=== PATIENT | male | born 1950 | race Caucasian/White ===

== ENCOUNTER → 2017-10-10 | Outpatient (CLI) | payer OTHER | END | disposition home or self-care (01) | LOC: OIH 10-07 13:22 | PROVIDERS: ATTEND Internal Medicine Cardiovascular Disease | DX: Z12.31 Encounter for screening mammogram for malignant neoplasm of breast (principal) | CPT/HCPCS: 75571 ==

== ENCOUNTER → 2018-02-13 | Outpatient (CLI) | payer OTHER ==
[~2018-02-13] MED LIST: CHOL500051 PO; DRON400T2 PO; FINA5TAB41 PO; MELA1TAB17 PO; METO-408 PO; PRAV20TA4 PO; RIVA20TA PO; SACU1TAB PO; TESTOSTERONE IM; [UNRECOGNIZED DRUG - CODE] PO
== END | disposition home or self-care (01) ==
LOC: SHCH 09:56
PROVIDERS: ATTEND Internal Medicine Cardiovascular Disease
DX: I08.1 Rheumatic disorders of both mitral and tricuspid valves (principal)
CPT/HCPCS: 93306

== ENCOUNTER 2018-03-12 07:47 | Observation (INO) | payer OTHER ==
[2018-03-10 08:35] VITALS: BP 126/71
[2018-03-10 08:38] LABS: BASOPHILS % (AUTO) 0.9 % (0.0-5.0); EOSINOPHILS % (AUTO) 1.1 % (0.0-8.0); HEMATOCRIT 48.6 % (42-54); LYMPHOCYTES % (AUTO) 27.8 % (21.0-51.0); MEAN CORPUSCULAR HEMOGLOBIN 38.1 pg (27.0-33.0); MEAN CORPUSCULAR HGB CONC 34.8 g/dL (32.0-36.0); MEAN CORPUSCULAR VOLUME 109.6 fL (79-99); MONOCYTES % (AUTO) 9.9 % (3.0-13.0); NEUTROPHILS % (AUTO) 60.3 % (40.0-77.0); PLATELET COUNT (AUTO) 272 K/uL (130-400); RED BLOOD CELL COUNT(AUTO) 4.43 MIL/uL (4.50-6.20); RED CELL DISTRIBUTION WIDTH 12.9 % (11.0-15.5); WHITE BLOOD COUNT (AUTO) 7.4 K/uL (4.8-10.8)
[2018-03-10 09:15] LABS: INR 1.14 (0.85-1.15); PARTIAL THROMBOPLASTIN TIME 30.6 SEC (26.3-35.5); PROTHROMBIN TIME 11.9 SEC (9.6-11.6)
[~2018-03-12] VITALS: Ht 175.3 cm; Wt 78.7 kg
[2018-03-12] VITALS (11 sets, daily range): BP systolic 99–136; BP diastolic 65–91
[2018-03-12] MEDS: CEFAZOLIN SODIUM 1 GM VIAL IVP SCH ×2 (05:00→19:30)
[~2018-03-12 07:47] MED LIST changes: +CALC-134 PO; +DIGO125T87 PO; -DRON400T2 PO; -TESTOSTERONE IM; -[UNRECOGNIZED DRUG - CODE] PO
[2018-03-12] MEDS ORDERED: IODIXANOL 320 MG/ML 100 ML VIAL ONE (10:39)
[2018-03-12] MEDS ORDERED: BUPIVACAINE/PF 0.25% 50ML VIAL IJ ONE (10:39)
[2018-03-12] MEDS ORDERED: LIDOCAINE HCL 1% MDV 50ML VIAL ONE (10:40)
[2018-03-12] MEDS ORDERED: CEFAZOLIN SODIUM 1 GM VIAL ONE (10:40)
[2018-03-12] MEDS ORDERED: MEPERIDINE-PF 25 MG/ML SYG ONE ×4 (10:46→12:00)
[2018-03-12] MEDS ORDERED: MIDAZOLAM HCL 1 MG/ML 2ML VIAL ONE ×3 (10:46→11:38)
[2018-03-12] MEDS ORDERED: SODIUM CHLORIDE 0.9% 1000ML 1,000 ML IV ONE (10:46)
[2018-03-12] MEDS ORDERED: IOHEXOL-350 50ML VIAL IV ONE (11:49)
[2018-03-12] MEDS ORDERED: METOPROLOL TARTRATE 1 MG/ML 5ML VIAL IV ONE (12:05)
[2018-03-12] MEDS ORDERED: ONDANSETRON HCL 4 MG/2 ML VIAL IV PRN (12:45)
[2018-03-12] MEDS ORDERED: ACETAMINOPHEN 325 MG TAB PO PRN (12:45)
[2018-03-12] MEDS ORDERED: ACETAMINOPHEN-CODEINE 300/30MG TAB PO PRN ×2 (12:45)
[2018-03-12] MEDS ORDERED: METOPROLOL TARTRATE 25 MG TAB PO ONE (14:00)
[2018-03-12] MEDS ORDERED: ALBUTEROL SULFATE 0.083% 2.5 MG/3 ML INH IH PRN (14:45)
[2018-03-12] MEDS: METOPROLOL TARTRATE 50 MG TAB PO SCH (20:28)
[2018-03-12] MEDS: CALCIUM 600 + VITAMIN D 400 TABLET PO SCH (20:29)
[2018-03-12] MEDS ORDERED: SIMVASTATIN 10 MG TABLET PO SCH (21:00)
[2018-03-12] MEDS ORDERED: FINASTERIDE 5 MG TABLET PO SCH (21:00)
[2018-03-12] MEDS ORDERED: DIGOXIN 125 MCG TABLET PO SCH (21:00)
[2018-03-13 03:00] VITALS: BP 129/95
[2018-03-13 03:44] LABS: HEMATOCRIT 47.2 % (42-54); MEAN CORPUSCULAR HEMOGLOBIN 36.2 pg (27.0-33.0); MEAN CORPUSCULAR HGB CONC 33.2 g/dL (32.0-36.0); MEAN CORPUSCULAR VOLUME 109.2 fL (79-99); PLATELET COUNT (AUTO) 217 K/uL (130-400); RED BLOOD CELL COUNT(AUTO) 4.32 MIL/uL (4.50-6.20); RED CELL DISTRIBUTION WIDTH 12.8 % (11.0-15.5); WHITE BLOOD COUNT (AUTO) 9.2 K/uL (4.8-10.8)
[2018-03-13 04:03] LABS: ALBUMIN 3.6 g/dL (3.5-5.0); BILIRUBIN,TOTAL 1.6 mg/dL (0.2-1.0); CREATININE 0.9 mg/dL (0.5-1.5); DIGOXIN 0.33 ng/mL (0.50-2.00); POTASSIUM 3.7 mmol/L (3.5-5.1); THYROID STIMULATING HORMONE 3.46 uIU/mL (0.36-3.74); TOTAL PROTEIN, SERUM 6.5 g/dL (6.0-8.3)
[2018-03-13 07:27] VITALS: BP 127/75
[2018-03-13] MEDS: METOPROLOL TARTRATE 50 MG TAB PO SCH (09:15)
[2018-03-13] MEDS: CALCIUM 600 + VITAMIN D 400 TABLET PO SCH (09:15)
[2018-03-13] MEDS ORDERED: METO-391 PO (11:05)
[2018-03-13 11:14] VITALS: BP 114/87
[2018-03-13] MEDS ORDERED: CHOLECALCIFEROL 5000 UNIT PO SCH (21:00)
== END 2018-03-13 13:15 | disposition home or self-care (01) ==
LOC: DAH 07:47 → 2AH 07:48 → DAH 07:48
PROVIDERS: ADMIT Internal Medicine; ATTEND Internal Medicine Cardiovascular Disease
DX: I48.2 Chronic atrial fibrillation (principal); I42.0 Dilated cardiomyopathy; F12.90 Cannabis use, unspecified, uncomplicated; F17.290 Nicotine dependence, other tobacco product, uncomplicated; Z80.0 Family history of malignant neoplasm of digestive organs; Z81.8 Family history of other mental and behavioral disorders; Z86.19 Personal history of other infectious and parasitic diseases; Z79.01 Long term (current) use of anticoagulants
CPT/HCPCS: 33207; 36415 ×2; 71045; 80048; 80053; 80162; 84443; 85025; 85027; 85610; 85730; 93005; 94664; A4606; C1786; C1894; C1898; G0378 ×29; J0690; J2175 ×4; J2250 ×3; J3490 ×3; J7030; Q9967; 99156; 99157

== ENCOUNTER → 2018-04-16 | Outpatient (CLI) | payer OTHER ==
[~2018-04-16] MED LIST changes: +METO-391 PO; -METO-408 PO
== END | disposition home or self-care (01) ==
LOC: SHCH 08:34
PROVIDERS: ATTEND Internal Medicine Cardiovascular Disease
DX: I73.9 Peripheral vascular disease, unspecified (principal); Z72.89 Other problems related to lifestyle
CPT/HCPCS: 93930

== ENCOUNTER → 2020-12-05 | Outpatient (CLI) | payer MEDICARE ==
[~2020-12-05] MED LIST changes: +DIGO125T71 PO; -DIGO125T87 PO
== END | disposition home or self-care (01) ==
LOC: SHCH 03:30
PROVIDERS: ATTEND Internal Medicine Cardiovascular Disease
DX: I65.23 Occlusion and stenosis of bilateral carotid arteries (principal); I25.10 Atherosclerotic heart disease of native coronary artery without angina pectoris; R00.0 Tachycardia, unspecified; I42.9 Cardiomyopathy, unspecified; Z95.1 Presence of aortocoronary bypass graft
CPT/HCPCS: 93880

== ENCOUNTER 2025-05-20 05:39 | Day surgery (SDC) | payer MEDICARE ==
[2025-05-18 10:28] LABS: IMMATURE GRANULOCYTE ABSOLUTE 0.03 K/uL (0-1); NUCLEATED RED BLOOD CELLS 0.0 % (0.0-0.19); PLATELET COUNT (AUTO) 202 K/uL (130-400); RED BLOOD CELL COUNT(AUTO) 3.90 MIL/uL (4.50-6.20); RED CELL DISTRIBUTION WIDTH 14.7 % (11.0-15.5); WHITE BLOOD COUNT (AUTO) 6.6 K/uL (4.8-10.8)
[2025-05-18 10:30] VITALS: BP 135/81; PULSE 98; RESP 17; TEMP 97.5
[2025-05-18 10:31] LABS: APPEARANCE,URINE CLEAR (CLEAR); GLUCOSE, URINE (UA) NEGATIVE (NEGATIVE); LEUKOCYTE ESTERASE ,URINE NEGATIVE Leu/uL (NEGATIVE); NITRATE,URINE NEGATIVE (NEGATIVE); OCCULT BLOOD,URINE +- (TRACE) (NEGATIVE)
[2025-05-18 10:32] LABS: ADD UA MICROSCOPIC YES
[2025-05-18 10:38] LABS: CREATININE 0.8 mg/dL (0.5-1.3); GLOMERULAR FILTR. RATE CALC 92.0 mL/min (>90); GLUCOSE,RANDOM 92.0 mg/dL (70-105); SODIUM SERUM 135.0 mmol/L (136-145); UREA NITROGEN, BLOOD 21.0 mg/dL (7-18)
[2025-05-18 10:39] LABS: INR 1.08 (0.85-1.15)
--- NOTE | 2025-05-18 12:01 | HMCIMG ---
STUDY CR CHEST, 1 VIEW HISTORY Preoperative evaluation. TECHNIQUE Single frontal radiograph of the chest was obtained. COMPARISON None. FINDINGS LUNGS Findings compatible with chronic obstructive pulmonary disease are present, with hyperinflation and increased interstitial markings consistent with chronic bronchitic changes. No focal pulmonary mass, new consolidation, or acute airspace abnormality is identified. PLEURAL SPACES No pleural effusion or pneumothorax is demonstrated. MEDIASTINUM AND JESSICA The cardiac silhouette is mildly enlarged, compatible with mild cardiomegaly. Mediastinal and hilar contours are otherwise within normal limits. DEVICES An external cardiac pacemaker overlies the left anterior chest wall with leads projecting in expected positions, without radiographic evidence of hardware-related complication. BONES AND SOFT TISSUES No aggressive osseous lesion or acute osseous abnormality is identified. IMPRESSION * Mild cardiomegaly with imaging features of COPD and chronic bronchitic changes; no superimposed acute pulmonary process. * Left anterior chest wall cardiac pacemaker without radiographic evidence of hardware complication. /Gully
--- NOTE | 2025-05-18 14:35 | EKG ---
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
[~2025-05-20] VITALS: Ht 175.3 cm; Wt 75.0 kg
[2025-05-20] VITALS (10 sets, daily range): BP systolic 101–133; BP diastolic 69–89; PULSE 62–91; RESP 11–21; TEMP 96.8–97.4
[~2025-05-20 05:39] MED LIST changes: -CALC-134 PO; +CALC-854 PO; +CHOL100046 PO; -CHOL500051 PO; +DIVA-134 PO; +LION'S MANE PO; +LOSA25TA41 PO; -MELA1TAB17 PO; +MELA5TAB SL; +METO-409 PO; -PRAV20TA4 PO; +PRAV20TA59 PO; -SACU1TAB PO; +VIT1CAPS47 PO; +[UNRECOGNIZED DRUG - OTHER] PO
[2025-05-20] MEDS: 0.9%NACL 1000ML 1,000 ML IV SCH (06:43)
[2025-05-20] MEDS ORDERED: IOHEXOL 350 MG/ML 100ML INFUS..BTL IV ONE (07:07)
[2025-05-20] MEDS ORDERED: HEParin-NS 1,000 UNIT/500 ML 1,000 ML IV ONE (07:08)
[2025-05-20] MEDS ORDERED: NITROGLYCERIN 50MG VIAL ONE (07:08)
[2025-05-20] MEDS ORDERED: LIDOCAINE HCL 400MG/20ML VIAL ONE (07:09)
[2025-05-20] MEDS ORDERED: MIDAZOLAM HCL 1 MG/ML 2ML VIAL ONE (07:24)
[2025-05-20] MEDS ORDERED: IOHEXOL-350 50ML VIAL IV ONE (07:42)
--- NOTE | 2025-05-20 08:08 | PRN ---
Cath Procedure Report CATH PROCEDURE REPORT CARDIAC CATHETERIZATION REPORT Date of Service: May 20, 2025 After informed consent the patient was prepped and draped in the usual fashion. He received a total of 16 cc of 2% xylocaine in the right inguinal area. A six Vietnamese sheath was introduced into the right femoral artery using modified Seldinger technique. A [place] four right six Vietnamese diagnostic catheter was advanced over guidewire to the aortic root. Wire was removed and catheter engaged into the three affiliated right coronary artery. The right coronary artery was visualized in multiple planes and catheter was removed. A [place] four left six Vietnamese diagnostic catheter was then advanced over guidewire to the aortic root. Wire was removed and catheter engaged into the left main coronary artery. The l eft coronary system was visualized multiple planes and catheter was removed. A pigtail catheter was then advanced over guidewire across the aortic valve. Wire was removed and hemodynamics measured. A ventriculogram in the BEGUM projection was performed. A pullback with continuous hemodynamic monitoring was performed and catheter was removed. A sheathogram was performed. The six Vietnamese Angio- Seal closure device applied. The entire procedure was well tolerated without complications. Findings: The right coronary artery is a right-dominant vessel free of obstruction gives rise to normal PDA and posterolateral branches. The left main coronary artery is free of obstruction. The left anterior descending artery extends to the apex of the heart and is free of obstruction gives rise to normal diagonal branch. The circumflex artery is free of obstruction gives gives rise to normal obtuse marginal branches. LV ejection fraction has improved to 45- 50%. Previously 35-40%. There was 2+ mitral regurgitation and no aortic stenosis. Lines and continue with treatment for his atrial fibrillation and consider EP referral for evaluation of syncope and nonsustained ventricular tachycardia. Report dictated by Ta MONIQUE,TA Wagoner MD May 20, 2025 08:08
[2025-05-20] MEDS ORDERED: GLUCAGON 1MG KIT 1 MG ML IM PRN (08:30)
[2025-05-20] MEDS ORDERED: DEXTROSE 50%-WATER 50 ML DISP.SYRIN IV PRN (08:30)
--- NOTE | 2025-05-20 09:59 | NUR ---
URINARY: VOIDED 300CC CLEAR YELLOW COLOR URINAL PER URINAL WITHOUT DIFFICULTY.
--- NOTE | 2025-05-20 10:30 | NUR ---
URINARY: VOIDED 400CC CLEAR YELLOW COLOR URINE PER URINAL WITHOUT DIFFICULTY.
== END 2025-05-20 12:30 | disposition home or self-care (01) ==
LOC: DAH 05:39
PROVIDERS: ATTEND Internal Medicine Cardiovascular Disease
DX: I25.10 Atherosclerotic heart disease of native coronary artery without angina pectoris (principal); I50.22 Chronic systolic (congestive) heart failure; R55 Syncope and collapse; E78.5 Hyperlipidemia, unspecified; I25.5 Ischemic cardiomyopathy; J44.9 Chronic obstructive pulmonary disease, unspecified; I42.0 Dilated cardiomyopathy; I48.21 Permanent atrial fibrillation; I34.0 Nonrheumatic mitral (valve) insufficiency; Z79.01 Long term (current) use of anticoagulants; Z95.0 Presence of cardiac pacemaker; Z88.8 Allergy status to other drugs, medicaments and biological substances; Z79.899 Other long term (current) drug therapy
CPT/HCPCS: 80048; 83880; 85025; 85610; 85730; 81001; 36415; 71045; 93005; 93458; C1894; C1760; J3490 ×2; J7030; J2250; J1644; Q9967 ×2; A4215; A4221; A4663; A4216; A4606; Q9965; A4223 ×2; J3010